=== PATIENT | female | born 2000 | race African-American/Black ===

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

== ENCOUNTER 2018-12-18 16:11 | Emergency (ER) | payer OTHER ==
[~2018-12-18] VITALS: Ht 146.1 cm; Wt 43.1 kg
[2018-12-18] MEDS ORDERED: LIDOCAINE 1% INJ 20 ML 20 ML VIAL INJ ONE (16:45)
--- NOTE | 2018-12-18 17:02 | NUR ---
5-0 prolene used-6 sutures to chin
--- NOTE | 2018-12-18 17:03 | ED Integumentary General ---
General Chief Complaint: Laceration Stated Complaint: FELL AT POOL,CHIN LAC Nursing Triage Note: Pt brought to ED by friends. Pt crying and reports not knowing what is going on. Pt's friend reports pt had been drinking at the swimming pool and hit chin on the side of the pool. Friend denies that pt LOC. Pt reports drinking 1/2-1 bottle of vodka today. Pt is bleeding from chin. Pt crying and repeating, "I don't know why I am like this." Source: patient, other (friends) Exam Limitations: no limitations History of Present Illness Date Seen by Provider: Dec 18, 2018 Time Seen by Provider: 16:45 Initial Comments 18-year-old female who is brought to the emergency room by friends. She reports that she fell at the swimming pool hitting her chin on the side of the pool. Friends report that she has been drinking and slipped in water causing her to fall. Friends report that she did not have loss of consciousness. The patient is tearful on arrival to the emergency room. She has 2, 1cm lacerations to her chin. She is alert and oriented on arrival to the emergency room. Timing/Duration: just prior to arrival Location: face (chin) Allergies and Home Medications Allergies Coded Allergies: No Known Drug Allergies (Unverified , 08/08/17) Patient Home Medication List Home Medication List Reviewed: Yes Review of Systems Review of Systems Constitutional: see HPI; No chills, No fever Skin: see HPI, other (laceration to chin) All Other Systems Reviewed Negative Unless Noted: Yes Past Maupgys-Uwueiv-Jzrqzi Hx Past Med/Social Hx: Reviewed Nursing Past Med/Soc Hx Patient Social History Alcohol Use: Occasionally Uses Recreational Drug Use: No Smoking Status: Current Everyday Smoker Type Used: Cigarettes 2nd Hand Smoke Exposure: Yes Recent Foreign Travel: No Contact w/Someone Who Travel: No Recent Infectious Disease Expo: No Recent Hopitalizations: No Past Medical History Surgeries: No Respiratory: No Cardiac: No Neurological: No Genitourinary: No Gastrointestinal: No Musculoskeletal: No Endocrine: No HEENT: No Cancer: No Psychosocial: No Integumentary: No Blood Disorders: No Family Medical History Reviewed Nursing Family Hx No Pertinent Family Hx Physical Exam Vital Signs Vital Signs - First Documented 12/18/18 16:21 Temp 97.3 Pulse 110 Resp 30 B/P (MAP) 120/80 (93) Pulse Ox 100 O2 Delivery Room Air Capillary Refill : Less Than 3 Seconds General Appearance: WD/WN, no apparent distress Cardiovascular: normal peripheral pulses, regular rate, rhythm, no edema, no gallop, no JVD, no murmur Respiratory: chest non-tender, lungs clear, normal breath sounds, no respiratory distress, no accessory muscle use Skin: normal color, warm/dry Skin Problem Location: other (laceration to chin) Procedures/Interventions Wound Location: Face Other Wound Location Chin Wound Length (cm): 2 Wound's Depth, Shape: superficial, linear Wound Explored: clean Irrigated w/ Saline (ccs): 200 Anesthesia: 1% Lidocaine Suture: Prolene Suture Size: 5-0 Number of Sutures: 6 Progress The wound was cleaned and irrigated with normal saline and Betasept. The wound was anesthetized size with approximately 2 mL's of lidocaine without epinephrine. The laceration was closed with 6 simple interrupted sutures of 5-0 Prolene. Progress/Results/Core Measures Results/Orders My Orders Orders - MARINA HOLLINGSWORTH Lidocaine 1% Inj 20 Ml (Xylocaine 1% Inj (12/18/18 16:45) Dipht,Pertuss(Acell),Tet Adult (Boostrix (12/18/18 17:15) Vaccine Administration Single (12/18/18 ) Medications Given in ED Vital Signs/I&O 12/18/18 12/18/18 16:21 17:13 Temp 97.3 97.3 Pulse 110 99 Resp 30 30 B/P (MAP) 120/80 (93) 121/82 (95) Pulse Ox 100 100 O2 Delivery Room Air Blood Pressure Mean: 93 Departure Impression Primary Impression: Laceration Disposition: 01 HOME, SELF-CARE Condition: Stable/Unchanged Departure-Patient Inst. Decision time for Depature: 17:02 Referrals: [facility] (PCP/Family) Primary Care Physician Patient Instructions: Laceration Repair With Stitches (DC) Add. Discharge Instructions: Watch for signs of infection such as increased redness, swelling, drainage, pain. Follow-up with your primary care provider or return back to the emergency room in 7 days to have the sutures removed. You may use ibuprofen and Tylenol as directed by the bottle for pain relief. Return back to the emergency room for worsening symptoms or concerns as needed. All discharge instructions reviewed with patient and/or family. Voiced understanding. MARINA HOLLINGSWORTH Dec 18, 2018 17:03
[2018-12-18 17:13] VITALS: BP 121/82
[2018-12-18] MEDS ORDERED: TETANUS,DIPTH,PERTUSS P/F (BOOSTRIX) 0.5 ML VIAL IM ONE (17:15)
== END 2018-12-18 17:13 | disposition home or self-care (01) ==
LOC: EDUNIT# 16:11 → ER 16:12
DX: S01.81XA Laceration without foreign body of other part of head, initial encounter (principal); F17.200 Nicotine dependence, unspecified, uncomplicated; Z23 Encounter for immunization; W16.032A Fall into swimming pool striking wall causing other injury, initial encounter; Y92.34 Swimming pool (public) as the place of occurrence of the external cause
CPT/HCPCS: 90471; 90715